=== PATIENT | female | born 1945 | race Caucasian/White ===

== ENCOUNTER 2017-11-01 11:36 | Day surgery (SDC) | payer OTHER ==
[~2017-11-01] VITALS: Ht 177.8 cm; Wt 71.7 kg
[~2017-11-01 11:36] MED LIST: BIOTIN2500 MCG PO; Biotin1 MG PO; CALCA500CH; CALCAVITD PO; CALCAVITDA PO; CALGLU500 PO; CEPH500 PO; CHOL10002 PO; CLEM1.34 PO; CLON.5 PO; CRANBERRY CONC1 EACH PO; CYCL10; DEXL60CA3 PO; ELIQUIS2.5 MG PO; ERGO400 PO; FAMO40 PO; FERR325 PO; FURO20 PO; FURO40 PO; GABA300 PO; GABA600 PO; GLARGINE SC; GLUC500 PO; HYDACE10B PO; HYDACE5; HYDCHL12.5; HYDCHL25 PO; HYDCHL50; HYDCHL50 PO; INSUASPI SC; INSULANPEN SC; Iron Supplemen325 MG PO; LEVSOD100 PO; LEVSOD25; LEVSOD50; LEVSOD75 PO; LISI5; LISI5 PO; Laxative5 M1; MAGOXI400 PO; MECL25; METF500; METF500 PO; MULTI VITAMIN1 EACH PO; MULVITMINF PO; Norco 5-325 Ta1 EACH PO; OMEP20ER; OMEP40CA12 PO; OXYC10ER PO; OXYC10TA19 PO; OXYC1L PO; PANT40 PO; PRIM250 PO; PRIM50; RXCLIN PO; SUCR1 PO; TOCO400 PO; TOLT4; TOLT4 PO; TRIA50 PO; TRIA80TC TOP
== END 2017-11-01 12:36 | disposition home or self-care (01) ==
LOC: ORSCSDS 11:36
PROVIDERS: Anesthesiology
PROC: 3E0R33Z Introduction of Anti-inflammatory into Spinal Canal, Percutaneous Approach (ICD-10-PCS; principal; 2017-11-01 12:30)
DX: M54.16 Radiculopathy, lumbar region (principal); M54.5 Low back pain; I48.91 Unspecified atrial fibrillation; I10 Essential (primary) hypertension; Z98.84 Bariatric surgery status; E03.9 Hypothyroidism, unspecified; E11.9 Type 2 diabetes mellitus without complications; Z79.01 Long term (current) use of anticoagulants; Z79.4 Long term (current) use of insulin; Z79.899 Other long term (current) drug therapy
CPT/HCPCS: J1040; J2001

== ENCOUNTER 2018-08-27 11:27 | Day surgery (SDC) | payer OTHER, SELFPAY ==
[~2018-08-27] VITALS: Ht 177.8 cm; Wt 65.7 kg
[~2018-08-27 11:27] MED LIST changes: +Allergy25 M1 PO; +Alph-E-Mixed400 UNIT PO; +BENADRYL25 MG PO; -Biotin1 MG PO; -CALCAVITD PO; +CALCIUM CIT-VI1 EACH PO; +CALCIUM CITRAT1 EAC1 PO; +CENTRUM SILVER1 EAC2 PO; +DOCU100 PO; +Dyazide 37.5-21 EACH PO; +Ferrous Sulfat325 M2 PO; +Fluocinonide15 GM TOP; +Glucosamine &1 EACH PO; -INSUASPI SC; +LEVSOD150 PO; +Lopressor 25 mg25 MG PO; +METCAR500 PO; +Meribin5 MG PO; +Motion Sickness25 M4 PO; +NOVOLOG FL100 UNIT/1 SC; +Novolog100 UNIT/1 SC; -TRIA50 PO; +TRIM100 PO; +VITAMIN E1000 UNIT PO; +Voltaren100 GM TOP
--- NOTE | 2018-08-27 13:56 | NUR ---
08/27/18 1356 Elise Tracey HEMATOCRIT DRAWN AND SENT TO LAB
== END 2018-08-27 13:56 | disposition home or self-care (01) ==
LOC: ORSCSDS 11:27
PROVIDERS: Internal Medicine Gastroenterology
PROC: 0W3P8ZZ Control Bleeding in Gastrointestinal Tract, Via Natural or Artificial Opening Endoscopic (ICD-10-PCS; principal; 2018-08-27 13:00)
PROC: 0D758ZZ Dilation of Esophagus, Via Natural or Artificial Opening Endoscopic (ICD-10-PCS; principal; 2018-08-27 13:00)
DX: R13.14 Dysphagia, pharyngoesophageal phase (principal); R63.4 Abnormal weight loss; E11.9 Type 2 diabetes mellitus without complications; Z79.01 Long term (current) use of anticoagulants; Z87.891 Personal history of nicotine dependence; Z79.4 Long term (current) use of insulin; Z79.899 Other long term (current) drug therapy
CPT/HCPCS: 82947; 85014; J2704; J7120

== ENCOUNTER → 2018-10-22 | Outpatient (CLI) | payer OTHER ==
[2018-10-22 12:23] LABS: Bilirubin, Urine Neg (Neg); Blood, Urine 1+ (Neg); Glucose Qualitative, Urine 2+ (Neg); Ketones, Urine Neg (Neg); Leukocyte Esterase, Urine 3+ (Neg); Nitrite, Urine Pos (Neg); Protein, Urine Neg (Neg); Specific Gravity, Urine 1.015 (1.003-1.022); Urobilinogen, Urine NORM (Normal)
[2018-10-22 12:35] LABS: Appearance, Urine Hazy (Clear); Bacteria Mod /hpf; Color, Urine Yellow (P-Yellow); Squamous Epithelial Cells Few /hpf (Few); White Blood Cells, Urine 50-100 /hpf (0-5)
== END | disposition home or self-care (01) ==
LOC: LAB SHORT 11:36 → LAB 11:36
PROVIDERS: Internal Medicine
DX: R10.9 Unspecified abdominal pain (principal)
CPT/HCPCS: 81001; 87077; 87086; 87186

== ENCOUNTER → 2019-07-17 | Outpatient (CLI) | payer OTHER | END | disposition home or self-care (01) | DX: L57.0 Actinic keratosis (principal) ==

== ENCOUNTER → 2019-07-25 | Outpatient (CLI) | payer OTHER | LOC: LAB 18:38 → LAB SHORT 18:38 → LAB FUT 07-24 11:35 | DX: N39.0 Urinary tract infection, site not specified (principal) | CPT/HCPCS: 87077; 87086; 87186 ==

== ENCOUNTER → 2019-08-14 | Outpatient (CLI) | payer OTHER ==
[~2019-08-14] MED LIST changes: +CALC.25 PO
== END | disposition home or self-care (01) ==
LOC: LAB UCHC 12:27 → LAB SHORT 12:27
DX: N39.0 Urinary tract infection, site not specified (principal)
CPT/HCPCS: 87077; 87086; 87186

== ENCOUNTER 2019-12-05 09:58 | Day surgery (SDC) | payer OTHER ==
[~2019-12-05] VITALS: Ht 177.8 cm; Wt 54.5 kg
[2019-12-05] MEDS ORDERED: TIZA4 PO (10:41)
[2019-12-05] MEDS ORDERED: Klor-Con 1010 MEQ PO (10:44)
--- NOTE | 2019-12-05 14:28 | NUR ---
LEFT WRIST TR BAND FULLY DEFLATED, REMAINS ON ALONG WITH ARM BOARD. SITE SOFT NON TENDER WITH NO BLEEDING OR OOZING NOTED. PT READING BOOK, NO DISTRESS NOTED. RIGHT GROIN SITE REMAINS STABLE. DRESSING C/D/I. CALL LIGHT IN REACH. HOB RAISED 45 DEGREES.
--- NOTE | 2019-12-05 15:00 | NUR ---
HOB RAISED, REPOSITIONED FOR COMFORT, RIGHT GROIN SITE SOFT NON TENDER WITH NO ACTIVE BLEEDING OR OOZING NOTED. LEFT TR BAND SITE ALSO SOFT WITH NO BLEEDING. PT HAS NO COMPLAINTS AT THIS TIME.
--- NOTE | 2019-12-05 15:35 | NUR ---
PT SON ARRIVES TO DRIVE HER HOME, PT GETS DRESSED WITH ASSISTANCE, AMBULATES WITH SLOW STEADY GAIT. TR BAND REMOVED, RED CLOTH DOT DRESSING APPLIED. ARM BOARD REMAINS ON FOR SUPPORT. IV REMOVED FROM RFA WITH CATH INTACT, PRESSURE DRESSING APPLIED. DISCHARGE PAPERWORK PROVIDED IN FOLDER, PT VERBALIZED UNDERSTANDING OF D/C INSTRUCTIONS. DENIES NEED FOR W/C OUT TO PRIVATE VEHICLE.
== END 2019-12-05 22:36 | disposition home or self-care (01) ==
LOC: MHTC 09:58
DX: K55.1 Chronic vascular disorders of intestine (principal); I77.4 Celiac artery compression syndrome; E78.5 Hyperlipidemia, unspecified; I48.0 Paroxysmal atrial fibrillation; Z95.2 Presence of prosthetic heart valve; I12.9 Hypertensive chronic kidney disease with stage 1 through stage 4 chronic kidney disease, or unspecified chronic kidney disease; E11.22 Type 2 diabetes mellitus with diabetic chronic kidney disease; N18.3 Chronic kidney disease, stage 3 (moderate); J45.909 Unspecified asthma, uncomplicated; Z87.891 Personal history of nicotine dependence; Z88.6 Allergy status to analgesic agent; Z88.5 Allergy status to narcotic agent; Z88.0 Allergy status to penicillin; Z88.2 Allergy status to sulfonamides; Z79.899 Other long term (current) drug therapy; Z79.01 Long term (current) use of anticoagulants; I65.23 Occlusion and stenosis of bilateral carotid arteries; Z98.84 Bariatric surgery status; Z79.4 Long term (current) use of insulin
CPT/HCPCS: 36140; 37246; 75726; 75774; 76937; 99152; 99153; C1725; C1760; C1769; C1887; C1894; J1644; J2250; J3010; J7030; Q9967

== ENCOUNTER → 2020-03-17 | Outpatient (CLI) | payer OTHER, SELFPAY ==
[~2020-03-17] MED LIST changes: +AURYXIA210 MG PO; +CLOBETASOL EMOL15 G2; +ELIQUIS5 MG PO; +Fluocinonide15 GM; +IPRATROPIUM BRO15 ML; +Ketoconazole15 GM; +Klor-Con 1010 MEQ PO; +LACTOBACILLUS1 EAC4 PO; +METO25 PO; +TIZA4 PO
== END | disposition home or self-care (01) ==
LOC: LAB SHORT 13:33 → LAB 13:33
DX: N39.0 Urinary tract infection, site not specified (principal)
CPT/HCPCS: 87077; 87086; 87186

== ENCOUNTER 2020-04-14 06:49 | Day surgery (SDC) | payer OTHER, SELFPAY ==
[~2020-04-14] VITALS: Ht 177.8 cm; Wt 56.6 kg
[~2020-04-14 06:49] MED LIST changes: -AURYXIA210 MG PO; -CLOBETASOL EMOL15 G2; -ELIQUIS5 MG PO; -Fluocinonide15 GM; -IPRATROPIUM BRO15 ML; -Ketoconazole15 GM; -LACTOBACILLUS1 EAC4 PO; -METO25 PO
[2020-04-14] MEDS ORDERED: AURYXIA210 MG PO (07:40)
[2020-05-25] MEDS ORDERED: ELIQUIS5 MG PO (13:16)
[2020-05-25] MEDS ORDERED: FURO40 PO (13:17)
[2020-05-25] MEDS ORDERED: Fluocinonide15 GM (13:17)
[2020-05-25] MEDS ORDERED: CLOBETASOL EMOL15 G2 (13:17)
[2020-05-25] MEDS ORDERED: IPRATROPIUM BRO15 ML (13:18)
[2020-05-25] MEDS ORDERED: Ketoconazole15 GM (13:18)
[2020-05-25] MEDS ORDERED: LACTOBACILLUS1 EAC4 PO (13:19)
[2020-05-25] MEDS ORDERED: OXYC10ER PO (13:19)
[2020-05-25] MEDS ORDERED: LEVSOD100 PO (13:19)
[2020-05-25] MEDS ORDERED: METO25 PO (13:19)
[2020-05-25] MEDS ORDERED: TRIM100 PO (13:19)
== END 2020-04-14 09:03 | disposition home or self-care (01) ==
LOC: ORSCSDS 06:49
PROVIDERS: Ophthalmology
PROC: 08RK3JZ Replacement of Left Lens with Synthetic Substitute, Percutaneous Approach (ICD-10-PCS; principal; 2020-04-14 08:00)
DX: H25.12 Age-related nuclear cataract, left eye (principal); I10 Essential (primary) hypertension; E11.9 Type 2 diabetes mellitus without complications; E03.9 Hypothyroidism, unspecified; Z87.891 Personal history of nicotine dependence; I48.91 Unspecified atrial fibrillation; Z79.01 Long term (current) use of anticoagulants; J45.909 Unspecified asthma, uncomplicated; Z79.4 Long term (current) use of insulin; Z79.899 Other long term (current) drug therapy
CPT/HCPCS: 82947; J2001; J2250; J3010; J7040; J7120; V2632

== ENCOUNTER 2020-06-01 10:19 | Day surgery (SDC) | payer OTHER, SELFPAY ==
[~2020-06-01] VITALS: Ht 177.8 cm; Wt 55.9 kg
[~2020-06-01 10:19] MED LIST changes: +AURYXIA210 MG PO; +CLOBETASOL EMOL15 G2; +ELIQUIS5 MG PO; +Fluocinonide15 GM; +IPRATROPIUM BRO15 ML; +Ketoconazole15 GM; +LACTOBACILLUS1 EAC4 PO; +METO25 PO
== END 2020-06-01 12:13 | disposition home or self-care (01) ==
LOC: ORSCSDS 10:19
PROVIDERS: Internal Medicine Gastroenterology
PROC: 0DB98ZX Excision of Duodenum, Via Natural or Artificial Opening Endoscopic, Diagnostic (ICD-10-PCS; principal; 2020-06-01 11:15)
PROC: 0DB68ZX Excision of Stomach, Via Natural or Artificial Opening Endoscopic, Diagnostic (ICD-10-PCS; principal; 2020-06-01 11:15)
DX: R63.4 Abnormal weight loss (principal); I48.91 Unspecified atrial fibrillation; Z98.84 Bariatric surgery status; R93.89 Abnormal findings on diagnostic imaging of other specified body structures; E11.9 Type 2 diabetes mellitus without complications; Z79.899 Other long term (current) drug therapy
CPT/HCPCS: 88305; 88342; J2704; J7120

== ENCOUNTER 2020-07-23 11:26 | Emergency (ER) | payer OTHER ==
[~2020-07-23] VITALS: Ht 177.8 cm; Wt 54.4 kg
== END 2020-07-23 14:06 | disposition home or self-care (01) ==
LOC: ER 11:26
DX: S01.01XA Laceration without foreign body of scalp, initial encounter (principal); S30.0XXA Contusion of lower back and pelvis, initial encounter; I48.91 Unspecified atrial fibrillation; I10 Essential (primary) hypertension; E11.9 Type 2 diabetes mellitus without complications; E03.9 Hypothyroidism, unspecified; Z79.01 Long term (current) use of anticoagulants; Z79.899 Other long term (current) drug therapy; W01.10XA Fall on same level from slipping, tripping and stumbling with subsequent striking against unspecified object, initial encounter
CPT/HCPCS: 12001; 70450; 99284-25

== ENCOUNTER 2020-10-14 07:51 | Day surgery (SDC) | payer MEDICARE, SELFPAY ==
[~2020-10-14] VITALS: Ht 177.8 cm; Wt 53.2 kg
[2020-10-14] MEDS ORDERED: GABA300 PO (08:43)
[2020-10-14] MEDS ORDERED: Methocarbamol500 MG PO (08:44)
[2020-10-14] MEDS ORDERED: TIZANIDINE HCL2 M1 PO (08:44)
== END 2020-10-14 10:10 | disposition home or self-care (01) ==
LOC: ORSCSDS 07:51
PROVIDERS: Internal Medicine Gastroenterology
PROC: 0DJD8ZZ Inspection of Lower Intestinal Tract, Via Natural or Artificial Opening Endoscopic (ICD-10-PCS; principal; 2020-10-14 09:15)
DX: R63.4 Abnormal weight loss (principal); R10.84 Generalized abdominal pain; R19.7 Diarrhea, unspecified; K64.8 Other hemorrhoids; K57.30 Diverticulosis of large intestine without perforation or abscess without bleeding; K52.9 Noninfective gastroenteritis and colitis, unspecified; Z87.891 Personal history of nicotine dependence; Z79.899 Other long term (current) drug therapy
CPT/HCPCS: 82947; 88305; J2704; J7120

== ENCOUNTER → 2020-11-22 | Outpatient (CLI) | payer MEDICARE ==
[~2020-11-22] MED LIST changes: +Methocarbamol500 MG PO; +TIZANIDINE HCL2 M1 PO
[2020-11-23 22:41] LABS: Adenovirus F 40/41 Not Detected (NOT DETECT); Astrovirus Not Detected (NOT DETECT); Campylobacter Sp Not Detected (NOT DETECT); Cryptosporidium Not Detected (NOT DETECT); Cyclospora Cayetanensis Not Detected (NOT DETECT); E. Coli O157 Not Detected (NOT DETECT); Entamoeba Histolytica Not Detected (NOT DETECT); Enteroaggregative E. coli-EAEC Not Detected (NOT DETECT); Enteropathogenic E. coli-EPEC Not Detected (NOT DETECT); Enterotoxigenic E. coli-ETEC Not Detected (NOT DETECT); Giardia Lamblia Not Detected (NOT DETECT); Norovirus GI/GII Not Detected (NOT DETECT); Plesiomonas Shigelloides Not Detected (NOT DETECT); Rotavirus A Not Detected (NOT DETECT); Salmonella Sp Not Detected (NOT DETECT); Sapovirus Not Detected (NOT DETECT); Shiga Toxin-prod E. coli-STEC Not Detected (NOT DETECT); Shigella/Enteroin E. coli-EIEC Not Detected (NOT DETECT); Vibrio Cholerae Not Detected (NOT DETECT); Vibrio Sp Not Detected (NOT DETECT); Yersinia Enterocolitica Not Detected (NOT DETECT)
== END ==
LOC: LAB SHORT 11-23 15:09 → LAB 15:09 → LAB FUT 11-19 11:40
PROVIDERS: Internal Medicine
DX: R19.7 Diarrhea, unspecified (principal)
CPT/HCPCS: 0097U

== ENCOUNTER 2021-03-23 06:30 | Day surgery (SDC) | payer MEDICARE ==
[~2021-03-23] VITALS: Ht 177.8 cm; Wt 55.0 kg
[2021-03-23 07:32] LABS: BASOPHILS ABSOLUTE AUTO 0.04 K/mm3 (0.00-0.23); BASOPHILS PERCENT AUTO 1 % (0-2); EOSINOPHILS ABSOLUTE AUTO 0.11 K/mm3 (0.00-0.68); EOSINOPHILS PERCENT AUTO 1 % (0-6); Hematocrit 31.6 % (33.0-51.0); IMMATURE GRAN ABSOLUTE AUTO 0.02 K/mm3 (0.00-0.10); IMMATURE GRAN PERCENT AUTO 0 % (0-1); LYMPHOCYTES ABSOLUTE AUTO 1.11 K/mm3 (0.84-5.20); LYMPHOCYTES PERCENT AUTO 14 % (21-46); MONOCYTES ABSOLUTE AUTO 0.58 K/mm3 (0.16-1.47); MONOCYTES PERCENT AUTO 7 % (4-13); Mean Corpuscular HGB 33.9 pg (26.0-34.0); Mean Corpuscular HGB Conc 31.6 g/dL (31.5-36.5); Mean Corpuscular Volume 107 fL (80-100); Mean Platelet Volume 11.3 fL (9.1-12.4); NEUTROPHILS ABSOLUTE AUTO 5.95 K/mm3 (1.96-9.15); NEUTROPHILS PERCENT AUTO 76 % (41-73); Platelet Count 196 K/mm3 (150-400); RDW Coefficient Variation 13.1 % (11.7-14.2); RDW Standard Deviation 51.5 fL (35.1-46.3); Red Blood Cell Count 2.95 M/mm3 (3.80-5.20); White Blood Cell Count 7.81 K/mm3 (4.00-11.30)
[2021-03-23 07:36] LABS: International Normalized Ratio 1.03; Prothrombin Time Results 10.8 Sec (9.7-11.5)
[2021-03-23 07:38] LABS: Bun/Creatinine Ratio 49.3 (12.0-20.0); Calcium, Blood 8.1 mg/dL (8.5-10.1); Creatinine, Blood 1.38 mg/dL (0.40-1.00); Potassium, Blood 3.2 mmol/L (3.5-5.5)
--- NOTE | 2021-03-23 12:24 | NUR ---
PT UP TO THE BATHRROOM /C SBA. TOLERATED WELL. -BLEEDING R WRIST AND GROIN. R WRIST TR BAND REMOVED. PUNCTURE AREA DRESSED /C CLOT DOT ROSENDOG.
--- NOTE | 2021-03-23 13:00 | NUR ---
PT AND FAMILY VERBALIZED UNDERSTANDING OF WRITTEN AND VERBAL D/C INST. IV REMOVED. -BLEEDING OR SWELLING R WRIST, BRACIAL, AND GROIN. PT TAKEN OUT OF HRT CENTER VIA W/C.
== END 2021-03-23 13:44 | disposition home or self-care (01) ==
LOC: MHTC 06:30
PROVIDERS: Radiology Diagnostic Radiology
DX: K55.8 Other vascular disorders of intestine (principal); K52.9 Noninfective gastroenteritis and colitis, unspecified
CPT/HCPCS: 76937; 80048; 84132; 85025; 85610; 99152; 99153; C1725; C1760; C1769; C1887; C1894; J1644; J2250; J3010; J7030; J7050; Q9967

== ENCOUNTER 2021-04-10 11:51 | Emergency (ER) | payer MEDICARE ==
[~2021-04-10] VITALS: Ht 177.8 cm; Wt 54.9 kg
[2021-04-10] MEDS ORDERED: AFRIN15 M6 (15:20)
== END 2021-04-10 16:06 | disposition home or self-care (01) ==
LOC: ER 11:51
DX: R04.0 Epistaxis (principal); T45.515A Adverse effect of anticoagulants, initial encounter; I10 Essential (primary) hypertension; I48.91 Unspecified atrial fibrillation; E11.9 Type 2 diabetes mellitus without complications; J45.909 Unspecified asthma, uncomplicated; E03.9 Hypothyroidism, unspecified; Z88.0 Allergy status to penicillin; Z88.2 Allergy status to sulfonamides; Z88.1 Allergy status to other antibiotic agents; Z88.6 Allergy status to analgesic agent; Z88.8 Allergy status to other drugs, medicaments and biological substances; Z79.899 Other long term (current) drug therapy; Z79.01 Long term (current) use of anticoagulants; Z87.891 Personal history of nicotine dependence
CPT/HCPCS: 99283; A9270

== ENCOUNTER → 2021-09-01 | Outpatient (CLI) | payer MEDICARE ==
[~2021-09-01] MED LIST changes: +AFRIN15 M6
== END | disposition home or self-care (01) ==
LOC: LAB 10:20 → LAB SHORT 10:20
DX: R30.9 Painful micturition, unspecified (principal)
CPT/HCPCS: 87077; 87086; 87186

== ENCOUNTER 2021-10-22 09:06 | Day surgery (SDC) | payer MEDICARE ==
[~2021-10-22] VITALS: Ht 177.8 cm; Wt 56.6 kg
--- NOTE | 2021-10-22 10:55 | NUR ---
10/22/21 1055 Karen Duque HISTORY, CHART, MEDICATIONS AND ALLERGIES REVIEWED BEFORE START OF PROCEDURE. PATIENT CONFIRMS NPO STATUS AND AGREES WITH SCHEDULED PROCEDURE. 3-LEAD EKG REVIEWED WITH PHYSICIAN PRIOR TO START OF PROCEDURE. MONITOR INTACT WITH CONTINUOUS PULSE OXIMETRY,CAPNOGRAPHY, 3-LEAD EKG, INTERMITTENT BP. SUPPLEMENTAL O2 TO BE TITRATED THROUGHOUT PROCEDURE TO MAINTAIN O2 SATURATION ABOVE 90%. PATIENT DETERMINED TO BE ASA APPROPRIATE FOR PROPOFOL SEDATION PRIOR TO START OF PROCEDURE BY DR. STEVENS.
--- NOTE | 2021-10-22 12:00 | NUR ---
Discharge instructions reviewed with patient. Patient verbalizes understanding. Copy given to patient to take home. Discharged via wheelchair to private car for ride home.
== END 2021-10-22 22:41 | disposition home or self-care (01) ==
LOC: ORSCMMR 09:06 → ORD 10:45 → ORSCMMR 10:45
PROVIDERS: Internal Medicine Gastroenterology
PROC: 0DJ08ZZ Inspection of Upper Intestinal Tract, Via Natural or Artificial Opening Endoscopic (ICD-10-PCS; principal; 2021-10-22 10:45)
DX: K92.1 Melena (principal); D50.9 Iron deficiency anemia, unspecified; Z98.84 Bariatric surgery status; R19.7 Diarrhea, unspecified; R63.4 Abnormal weight loss; Z87.891 Personal history of nicotine dependence; E11.9 Type 2 diabetes mellitus without complications; Z79.899 Other long term (current) drug therapy; Z79.01 Long term (current) use of anticoagulants
CPT/HCPCS: 82947; J2704; J7120

== ENCOUNTER → 2021-12-03 | Outpatient (CLI) | payer MEDICARE | END | disposition home or self-care (01) | LOC: LAB SHORT 08:50 → LAB 08:50 | DX: N30.00 Acute cystitis without hematuria (principal) | CPT/HCPCS: 87077; 87086; 87186 ==

== ENCOUNTER → 2022-01-19 | Outpatient (CLI) | payer MEDICARE | END | disposition home or self-care (01) | LOC: PLD 10:55 → LAB SHORT 10:55 | DX: L57.0 Actinic keratosis (principal) | CPT/HCPCS: 88305; 88312 ==

== ENCOUNTER → 2022-03-15 | Outpatient (CLI) | payer MEDICARE | END | disposition home or self-care (01) | LOC: LAB SHORT 11:47 | DX: R39.15 Urgency of urination (principal) | CPT/HCPCS: 87077; 87086; 87186 ==